=== PATIENT | male | born 1990 | race Caucasian/White ===

== ENCOUNTER 2016-05-11 01:14 | Emergency (ER) | payer SELFPAY ==
[~2016-05-11] VITALS: Ht 175.3 cm; Wt 86.2 kg
[2016-05-11 01:28] VITALS: BP 128/81
== END 2016-05-11 01:51 | disposition home or self-care (01) ==
LOC: ER 01:16
DX: K08.89 Other specified disorders of teeth and supporting structures (principal); Z88.0 Allergy status to penicillin; F10.20 Alcohol dependence, uncomplicated; F17.210 Nicotine dependence, cigarettes, uncomplicated
CPT/HCPCS: A4606; Z7610